=== PATIENT | female | born 1995 | race Two or more races ===

== ENCOUNTER 2017-10-22 11:09 | Emergency (ER) | payer SELFPAY ==
[~2017-10-22] VITALS: Ht 162.6 cm; Wt 63.5 kg
[2017-10-22 11:30] LABS: BILIRUBIN,URINE NEGATIVE (NEG); GLUCOSE,URINE NEGATIVE (NEG); NITRITE,URINE NEGATIVE (NEG); PROTEIN,URINE NEGATIVE (NEG-TRACE); UROBILINOGEN,URINE 0.2 mg/dL (0.2 mg/dL)
[2017-10-22 11:44] LABS: BACTERIA,URINE MODERATE /HPF (0-FEW); RBC,URINE 0 /HPF (0-2); SQUAMOUS EPITHELIAL CELL,UR MANY /LPF
[2017-10-22 11:46] VITALS: BP 105/63
[2017-10-22] MEDS ORDERED: CEPH-264 PO (12:27)
--- NOTE | 2017-10-22 12:32 | PHYS DOC ---
Past Medical History Past Medical History: No Pertinent History Past Surgical History: No Surgical History Alcohol Use: None Drug Use: None Adult General Chief Complaint Chief Complaint: ABDOMINAL PAIN HPI HPI Patient is a 21 year old female who presents with diffuse lower abdominal pain overnight that self resolved after taking Tylenol. Patient states the pain has not returned, denies dysuria or increased urinary frequency, no vaginal discharge or discharge. She cannot recall exactly when her last period was but she is late. Denies prior abdominal surgeries. No prior pregnancies. Review of Systems Review of Systems Constitutional: Denies fever or chills Eyes: Denies eye pain or discharge HENT: Denies nasal congestion or sore throat Respiratory: Denies cough or shortness of breath [] Cardiovascular: Denies chest pain or edema GI: per hpi : Denies dysuria Musculoskeletal: Denies back pain Extremities: denies joint pain [] Integument: Denies rash Neurologic: Denies headache, denies focal weakness , denies sensory changes [] Allergies Allergies Allergies Coded Allergies Type Severity Reaction Last Updated Verified No Known Drug Allergies 10/22/17 No Physical Exam Physical Exam Constitutional: Well developed, well nourished HENT: Normocephalic, atraumatic, bilateral external ears normal, oropharynx moist Eyes: PERRLA, EOMI, conjunctiva normal, no discharge. Neck: Normal range of motion, supple, no stridor. Cardiovascular:Heart rate regular with regular rhythm Lungs & Thorax: No respiratory distress Abdomen: soft, nondistended, nontender, no guarding or peritoneal signs : No significant discharge, no CMT, no adnexal tenderness or mass Skin: Warm, dry Back: No tenderness Extremities: No tenderness, no cyanosis, no edema. [] Neurologic: Alert and oriented X 3, normal motor function, normal sensory function, no focal deficits noted. [] Current Patient Data Vital Signs Vital Signs Date Time Temp Pulse Resp B/P (MAP) Pulse Ox O2 Delivery O2 Flow Rate FiO2 10/22/17 11:10 98.7 102 18 133/70 (91) 100 Room Air 98.7 Lab Values Laboratory Tests Test 10/22/17 11:15 10/22/17 11:18 POC Urine HCG, Qualitative Hcg positive (Negative) Urine Collection Type Unknown Urine Color Yellow Urine Clarity Clear Urine pH 6.0 Urine Specific [place] 1.025 Urine Protein Negative mg/dL (NEG-TRACE) Urine Glucose (UA) Negative mg/dL (NEG) Urine Ketones (Stick) Negative mg/dL (NEG) Urine Blood Negative (NEG) Urine Nitrite Negative (NEG) Urine Bilirubin Negative (NEG) Urine Urobilinogen Dipstick 0.2 mg/dL (0.2 mg/dL) Urine Leukocyte Esterase Small (NEG) Urine RBC 0 /HPF (0-2) Urine WBC 11-20 /HPF (0-4) Urine Squamous Epithelial Cells Many /LPF Urine Bacteria Moderate /HPF (0-FEW) Urine Mucus Mod /LPF Microbiology 10/22/17 Wet Prep - Final, Complete EKG EKG [] Radiology/Procedures Radiology/Procedures [] Course & Med Decision Making Course & Med Decision Making Pertinent Labs and Imaging studies reviewed. (See chart for details) Pt's urine test was positive, signs of urinary tract infection, no other signs of infection at this time, does not have any pain, no signs of ectopic . Counseled patient on return precautions, discharged with Keflex, referral sheet given. Dragon Disclaimer Dragon Disclaimer This electronic medical record was generated, in whole or in part, using a voice recognition dictation system. Departure Departure Impression: Primary Impression: Urinary tract infection affecting Disposition: 01 HOME, SELF-CARE Condition: IMPROVED Patient Instructions: - First Trimester, [id number], Urinary Tract Infection, [id number] Scripts Cephalexin (KEFLEX) 500 Mg Capsule 1 CAP PO BID, #14 CAP Prov: MAURICE CARTER MD 10/22/17 MAURICE CARTER MD Oct 22, 2017 12:32
== END 2017-10-22 12:37 | disposition home or self-care (01) ==
LOC: ER 11:09
DX: N39.0 Urinary tract infection, site not specified (principal); Z33.1 Pregnant state, incidental
CPT/HCPCS: 36415; 81001; 81025; 84702; 87086; 87491; 87591; 99284; Q0111